=== PATIENT | male | born 1975 | race Caucasian/White ===

== ENCOUNTER 2018-10-16 02:05 | Emergency (ER) | payer OTHER ==
[~2018-10-16] VITALS: Ht 175.3 cm; Wt 99.8 kg
[2018-10-16 02:16] VITALS: BP 169/100
--- NOTE | 2018-10-16 02:18 | NUR ---
TO LOBBY A/W BED , AMBULATORY
--- NOTE | 2018-10-16 04:15 | NUR ---
42/M requesting a refill on his medications for blood pressure. 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 Denies headache, or blurred vision.
[2018-10-16 04:25] VITALS: BP 161/95
--- NOTE | 2018-10-16 04:25 | NUR ---
Patient discharged with v/s stable. Written and verbal after care instructions given and explained. Patient alert, oriented and verbalized understanding of instructions. Ambulatory with steady gait. All questions addressed prior to discharge. ID band removed. Patient advised to follow up with PMD. Rx of Lopressor 50mg, Terazosin, Clonidine given. Patient educated on indication of medication including possible reaction and side effects. Opportunity to ask questions provided and answered.
== END 2018-10-16 04:25 | disposition home or self-care (01) ==
LOC: MED 02:05
DX: I10 Essential (primary) hypertension (principal); Z76.0 Encounter for issue of repeat prescription; Z88.2 Allergy status to sulfonamides; Z88.8 Allergy status to other drugs, medicaments and biological substances
CPT/HCPCS: 99283

== ENCOUNTER 2019-05-25 01:18 | Emergency (ER) | payer SELFPAY ==
[~2019-05-25] VITALS: Ht 170.2 cm; Wt 63.5 kg
[2019-05-25 01:22] VITALS: BP 185/123
--- NOTE | 2019-05-25 01:25 | NUR ---
PT AMBULATED TO BED #3
--- NOTE | 2019-05-25 01:28 | NUR ---
PT ASSESSMENT COMPLETE. PT SEATED UPRIGHT IN BED. WILL CONTINUE TO MONITOR.
[2019-05-25] MEDS ORDERED: METOPROLOL 50 MG TAB PO ONE (01:30)
[2019-05-25] MEDS ORDERED: cloNIDine 0.1 MG TAB PO ONE (01:30)
--- NOTE | 2019-05-25 01:48 | NUR ---
DISCUSSED WITH PT DIETARY CHANGES AND MODERATE ACTIVITIY TO AID WITH DECRESING BLOOD PRESSURE. PT VERBALIZED UNDERSTANDING.
--- NOTE | 2019-05-25 02:10 | NUR ---
PT BP DECREASED TO 159/118 WITH HR 66, DR. TAI GAVE PERMISSION FOR PT TO BE DISCHARGED.
--- NOTE | 2019-05-25 02:12 | NUR ---
Patient discharged with v/s stable. Written and verbal after care instructions given and explained. Patient alert, oriented and verbalized understanding of instructions. Ambulatory with steady gait. All questions addressed prior to discharge. ID band removed. Patient advised to follow up with PMD. Rx of CLONDIDINE AND LOPRESOR given. Patient educated on indication of medication including possible reaction and side effects. Opportunity to ask questions provided and answered.
[2019-05-25 02:14] VITALS: BP 159/118
== END 2019-05-25 02:12 | disposition home or self-care (01) ==
LOC: MED 01:18
DX: I10 Essential (primary) hypertension (principal); Z76.0 Encounter for issue of repeat prescription; Z88.2 Allergy status to sulfonamides; Z88.8 Allergy status to other drugs, medicaments and biological substances
CPT/HCPCS: 99283